=== PATIENT | male | born 1950 | race American Indian/Alaskan Native ===

== ENCOUNTER 2017-07-10 13:57 | Outpatient (CLI) | payer MEDICARE ==
--- NOTE | 2017-07-10 15:17 | XRay Report ---
LUMBOSACRAL SPINE, 6 VIEWS History: Back pain, osteoarthritis. Sacroiliitis. Findings: No comparison. There has been previous posterior fusion at L4-5 level. There is straightening of the normal lordosis. Moderate to severe multilevel degenerative disc disease and facet arthropathy are identified. No compression deformity, subluxation or bone lesion. The oblique images are limited. The flexion and extension views demonstrate no evidence for instability. There are mild symmetric osteoarthritic changes at the SI joints. Impression: Posterior fusion at L4-5. Multilevel degenerative change. No evidence for instability.
--- NOTE | 2017-07-11 10:04 | Magnetic Resonance Report ---
MRI scan of lumbar spine: History: Osteoarthritis, pain. Technique: Multiplanar, multisequence images were obtained without contrast injection. Findings: The conus medullaris terminates at L1 with normal signal intensity. Patient status post posterior fusion L4-5. No definite paravertebral mass. No evidence of acute fracture. Normal height of L1, L2 and L3. Decrease in height of L1-L2 and L2-L3 interspaces with degenerative changes. L3-L4 and L4-L5 interspaces are obscured by artifacts from the metallic hardware. L5-S1 is only partially visualized centrally. Lateral neural foramina not visualized. L1-L2. No neural foramina narrowing or central canal spinal stenosis. Degenerative facet joints. L2-L3. Bilateral neural foramina narrowing and mild central canal spinal stenosis secondary to degenerative diffuse disc bulge and degenerative facet joints and ligamenta flava hypertrophy. L5-S1. The central portion is visualized and appears unremarkable. The neural foramina is obscured by metallic artifacts. Impression: Limited study as detailed above. Stable fusion.
== END 2017-07-10 13:58 | disposition home or self-care (01) ==
LOC: SPVIMAG 13:57 → MRI 13:57
PROVIDERS: ATTEND Pain Medicine Interventional Pain Medicine
DX: M48.06 Spinal stenosis, lumbar region (principal); M51.17 Intervertebral disc disorders with radiculopathy, lumbosacral region; M12.88 Other specific arthropathies, not elsewhere classified, other specified site; M47.27 Other spondylosis with radiculopathy, lumbosacral region; I10 Essential (primary) hypertension; Z87.891 Personal history of nicotine dependence
CPT/HCPCS: 72114; 72148

== ENCOUNTER 2017-10-29 06:57 | Day surgery (SDC) | payer MEDICARE ==
[2017-10-29 07:54] LABS: Basophils # (Auto) 0.1 K/mm3 (0.0-0.1); Basophils % (Auto) 1.1 % (0.0-1.8); Eosinophils # (Auto) 0.1 K/mm3 (0.0-0.4); Eosinophils % (Auto) 0.9 % (0.0-4.3); Hematocrit 47.2 % (35.5-45.6); Hemoglobin 15.5 gm/dl (11.8-15.2); Lymphocytes # (Auto) 1.8 K/mm3 (1.2-5.4); Lymphocytes % (Auto) 26.6 % (13.4-35.0); Mean Corpuscular HGB Conc 33 % (32-34); Mean Corpuscular Volume 72 fl (84-94); Monocytes # (Auto) 0.9 K/mm3 (0.0-0.8); Monocytes % (Auto) 13.4 % (0.0-7.3); Platelet Count 149 K/mm3 (140-440); Red Blood Count 6.56 M/mm3 (3.65-5.03); Red Cell Distribution Width 18.3 % (13.2-15.2)
[2017-10-29] MEDS ORDERED: NACL 0.9% 500 ML 500 ML IV SCH (08:00)
[2017-10-29 08:03] LABS: INR 0.89 (0.87-1.13)
[2017-10-29 08:14] LABS: Mean Corpuscular Hemoglobin 24 pg (28-32)
[2017-10-29 08:21] LABS: BUN/Creatinine Ratio 17; Blood Urea Nitrogen 12 mg/dL (9-20); Calcium 9.3 mg/dL (8.4-10.2); Hemolysis Index 8
[2017-10-29] MEDS ORDERED: ECOTRIN PO ONE (09:00)
[2017-10-29] MEDS ORDERED: HEPARIN 10,000 UNITS/10 ML ONE (11:04)
[2017-10-29] MEDS ORDERED: HEPARIN/NS 5000 UNIT/500ML(CATH LAB) 1,000 ML IR ONE (11:04)
[2017-10-29] MEDS ORDERED: CALAN ONE (11:05)
[2017-10-29] MEDS ORDERED: NITROGLYCERIN SYRINGE 3 ML ONE (11:05)
[2017-10-29] MEDS ORDERED: XYLOCAINE 2% INFILTRATI ONE (11:05)
[2017-10-29] MEDS ORDERED: SUBLIMAZE ONE (11:06)
[2017-10-29] MEDS ORDERED: VERSED ONE (11:06)
--- NOTE | 2017-10-29 12:22 | Short Stay Summary ---
Short Stay Documentation Date of service: 10/29/17 - History H&P: obtained from office - Allergies and Medications Current Medications: Allergies No Known Allergies Allergy (Verified 10/29/17 07:22) Home Medications Medication Instructions Recorded Confirmed Last Taken Type amLODIPine [Norvasc] 10 mg PO QDAY #30 tablet 02/23/16 10/29/17 10/28/17 Rx 10mg Carvedilol [Coreg] 25 mg PO BID 10/29/17 10/29/17 10/28/17 History 25mg Gabapentin [Neurontin] 300 mg PO TID 10/29/17 10/29/17 10/28/17 History 300mg Percocet 7.5/325 mg 1 tab PO TID 10/29/17 10/29/17 10/28/17 History 1 Active Medications Sodium Chloride (Nacl 0.9% 500 Ml) 500 mls @ 50 mls/hr IV DIRECT JASON Stop: 10/29/17 17:59 Last Admin: 10/29/17 08:23 Dose: 50 mls/hr - Physical exam General appearance: no acute distress Integumentary: no rash HEENT: Atraumatic Lungs: Clear to auscultation Breasts: deferred Heart: Regular rate Gastrointestinal: normal Male Genitourinary: deferred Female Genitourinary: deferred Rectal Exam: deferred Extremities: no ischemia Neurological: Normal gait - Brief post op/procedure progress note Date of procedure: 10/29/17 Pre-op diagnosis: Shortness of breath Post-op diagnosis: same Procedure: LHC, LV gram and aortogram Anesthesia: MAC Findings: See report Surgeon: JIM MARES Estimated blood loss: none Pathology: none Condition: stable - Hospital course Hospital course: Uneventful - Disposition Condition at discharge: Good Disposition: DC-01 TO HOME OR SELFCARE Short Stay Discharge Plan Activity: advance as tolerated Weight Bearing Status: Weight Bear as Tolerated Diet: low fat, low cholesterol, low salt Follow up with: HALIE ANDERSEN MD [Primary Care Provider] - 7 Days
--- NOTE | 2017-10-29 13:23 | Cardiac Catherization Report ---
LEFT HEART CATHETERIZATION INDICATION FOR PROCEDURE: Shortness of breath. ORDERING PHYSICIAN: Zayda Lewis MD PROCEDURES PERFORMED: 1. Selective left and right coronary angiography. 2. Left ventriculography. 3. Ascending aortography. DESCRIPTION OF PROCEDURE: After obtaining the consent, the patient was draped using sterile technique. A 2% lidocaine was injected into the right wrist. A 5-Indian vascular sheath was inserted into the right radial artery. A 5-Indian JL3.5 catheter was used to selectively engage left coronary artery. A 5-Indian JR4 catheter was used to selectively engage the right coronary artery. A 5-Indian JR4 catheter was used to hand inject the left ventriculogram. A 5-Indian pigtail catheter was used to perform an ascending aortogram. No complications occurred during the procedure. Hemostasis was achieved at the end of the procedure using manual pressure. SPECIMEN REMOVED: None. ESTIMATED BLOOD LOSS: Minimal. SEDATION: Sedation administered was 1 mg of IV Versed and 50 mcg of IV fentanyl. FINDINGS: HEMODYNAMICS: Aortic pressure is 124/98. LV systolic pressure is mmHg and LV end diastolic pressure 8 mmHg. There was no significant gradient across the left ventricular outflow tract. CARDIAC STRUCTURES: 1. The left ventricle is normal in size with a hyperdynamic systolic function. The left ventricular ejection fraction is estimated at 70%. 2. The ascending aorta measures 49 mm at the sinus of Valsalva, 39 mm at the sinotubular junction, and 45 mm at the ascending aortic root. CORONARY ANATOMY: 1. This is a right dominant circulation. 2. The left main is angiographically normal. 3. The LAD is angiographically normal. 4. The left circumflex artery is angiographically normal. 5. The right coronary artery is angiographically normal. IMPRESSION: 1. Angiographically normal coronary circulation. 2. Hyperdynamic left ventricular function with an ejection fraction estimated at 70%. 3. Dilated ascending aorta with an aortic root measuring 49 mm at the sinus of Valsalva, 39 mm at the sinotubular junction, and 45 mm at the ascending aorta. RECOMMENDATIONS: Follow up with referring police liaison. JOB# [id number] MALUIK/SOWMYA
[2017-10-29 13:38] VITALS: BP 119/92
== END 2017-10-29 14:30 | disposition home or self-care (01) ==
LOC: CATHLABREC 06:57
PROVIDERS: ATTEND Internal Medicine
DX: R06.02 Shortness of breath (principal); E78.5 Hyperlipidemia, unspecified; I10 Essential (primary) hypertension; Z79.899 Other long term (current) drug therapy; Z82.49 Family history of ischemic heart disease and other diseases of the circulatory system
CPT/HCPCS: 36415; 80048; 85025; 85610; 85730; 93005; 93010; 93458; 93567; 99156; 99157; C1894; J1644; J2250; J3010; J7040; Q9967

== ENCOUNTER 2017-12-03 10:25 | Outpatient (CLI) | payer MEDICARE ==
[2017-12-03 11:04] LABS: Blood Urea Nitrogen 11 mg/dL (9-20)
[2017-12-03] MEDS ORDERED: NACL ONE (11:16)
--- NOTE | 2017-12-03 14:10 | Cat Scan Report ---
CTA CHEST: HISTORY: Dyspnea. COMPARISON: none. TECHNIQUE: Helical CT in 1.25mm intervals following IV contrast. Pulmonary embolus protocol. Sagittal and coronal reformatted images. Rotational MIP images. FINDINGS: Contrast bolus is satisfactory. No pulmonary embolus is identified. Thyroid gland: Normal. Tracheobronchial tree: Normal. Esophagus: Normal. Heart: Normal. Pericardium: Normal. Mediastinum: The thoracic aorta is mildly ectatic. No significant atherosclerotic disease, aneurysm or dissection. Lung Nick: Within normal limits. Pleural Spaces: Normal. Musculoskeletal: Mild thoracic spondylosis is noted. No fracture or suspicious bony lesion. IMPRESSION: No evidence for pulmonary embolus. No acute cardiopulmonary process is identified. Mild ectasia of the thoracic aorta. Thoracic spondylosis.
== END 2017-12-03 10:26 | disposition home or self-care (01) ==
LOC: CT 10:25
PROVIDERS: ATTEND Internal Medicine Cardiovascular Disease
DX: I77.810 Thoracic aortic ectasia (principal); M47.894 Other spondylosis, thoracic region
CPT/HCPCS: 36415; 71275; 82565; 84520; Q9967

== ENCOUNTER 2019-08-06 13:18 | Emergency (ER) | payer MEDICARE ==
--- NOTE | 2019-08-06 14:03 | Emergency Department Report ---
ED Dizziness HPI - General Chief Complaint: Dizziness Stated Complaint: BACK PAIN Time Seen by Provider: 08/06/19 14:03 Source: patient, EMS Mode of arrival: Stretcher Limitations: Physical Limitation - History of Present Illness Initial Comments: 58-year-old -[place] male patient with history of hypertension, CHF, diabetes, HIV, and chronic low back pain presents to the ED with complaints of dizziness and acute on chronic back pain after falling last night and today. He states he did hit his head yesterday, however denies any loss of consciousness, current headache, vision changes, numbness/tingling. He states his dizziness has resolved. He also denies any chest pain, shortness of breath, or dysuria. Patient states he is unsure of why he fell and denies any symptoms preceding the falls. He states "My legs just gave out". Patient also denies any saddle paresthesias, bladder/bowel loss of control, or numbness/tingling in legs. MD Complaint: dizziness -: Sudden Timing: now resolved Description: lightheadedness History of Same: No Severity: moderate Associated Symptoms: denies: chest pain, confusion, diaphoresis, fever/chills, seizure, shortness of breath, syncope - Related Data Home Medications Medication Instructions Recorded Confirmed Last Taken Gabapentin [Neurontin] 300 mg PO TID 10/29/17 06/15/18 10/28/17 300 mg Carvedilol [Coreg] 12.5 mg PO BID 06/15/18 06/15/18 Unknown Lisinopril [Zestril] 40 mg PO QDAY 06/15/18 06/15/18 Unknown Previous Rx's Medication Instructions Recorded Last Taken Type Folic Acid [Folvite] 1 mg PO DAILY #30 tablet 06/18/18 Unknown Rx Thiamine [Vitamin B-1] 100 mg PO QDAY #30 tablet 06/18/18 Unknown Rx hydrALAZINE [Apresoline TAB] 50 mg PO Q8HR #90 tablet 06/18/18 Unknown Rx Allergies Allergy/AdvReac Type Severity Reaction Status Date / Time No Known Allergies Allergy Verified 10/29/17 07:22 ED Review of Systems ROS: Stated complaint: BACK PAIN Other details as noted in HPI Comment: All other systems reviewed and negative Constitutional: denies: chills, fever Respiratory: no symptoms reported. denies: cough, shortness of breath, SOB with exertion, SOB at rest, wheezing Cardiovascular: denies: chest pain, palpitations, dyspnea on exertion, syncope Gastrointestinal: denies: abdominal pain, nausea, vomiting, diarrhea, constipation, hematochezia Musculoskeletal: back pain. denies: joint swelling Skin: denies: rash, lesions Neurological: denies: headache, weakness, numbness, paresthesias, confusion Hematological/Lymphatic: denies: easy bleeding ED Past Medical Hx - Past Medical History Hx Hypertension: Yes Hx Congestive Heart Failure: No Hx Diabetes: Yes Hx Asthma: No Hx COPD: No Hx HIV: No Additional medical history: Chronic lower back pain, Nerve pain in right hand - Surgical History Additional Surgical History: Back surgery x 2 - Social History Smoking Status: Former Smoker Substance Use Type: None - Medications Home Medications: Home Medications Medication Instructions Recorded Confirmed Last Taken Type Gabapentin [Neurontin] 300 mg PO TID 10/29/17 06/15/18 10/28/17 History 300 mg Carvedilol [Coreg] 12.5 mg PO BID 06/15/18 06/15/18 Unknown History Lisinopril [Zestril] 40 mg PO QDAY 06/15/18 06/15/18 Unknown History Folic Acid [Folvite] 1 mg PO DAILY #30 tablet 06/18/18 Unknown Rx Thiamine [Vitamin B-1] 100 mg PO QDAY #30 tablet 06/18/18 Unknown Rx hydrALAZINE [Apresoline TAB] 50 mg PO Q8HR #90 tablet 06/18/18 Unknown Rx ED Physical Exam - General Limitations: Physical Limitation ED Course Vital Signs 08/06/19 08/06/19 13:51 16:52 Temperature 97.9 F Pulse Rate 64 Respiratory 18 18 Rate Blood Pressure 92/70 O2 Sat by Pulse 96 98 Oximetry ED Medical Decision Making - Lab Data Result diagrams: 08/06/19 14:55 08/06/19 14:30 Lab Results 08/06/19 08/06/19 08/06/19 Range/Units 14:30 14:55 16:59 WBC 11.0 (4.5-11.0) K/mm3 RBC 5.95 H (3.65-5.03) M/mm3 Hgb 13.9 (11.8-15.2) gm/dl Hct 43.7 (35.5-45.6) % MCV 73 L (84-94) fl MCH 23 L (28-32) pg MCHC 32 (32-34) % RDW 18.8 H (13.2-15.2) % Plt Count 136 L (140-440) K/mm3 Sodium 135 L (137-145) mmol/L Potassium 4.5 (3.6-5.0) mmol/L Chloride 100.6 (98-107) mmol/L Carbon Dioxide 20 L (22-30) mmol/L Anion Gap 19 mmol/L BUN 8 L (9-20) mg/dL Creatinine 0.8 (0.8-1.5) mg/dL Estimated GFR > 60 ml/min BUN/Creatinine Ratio 10 % Glucose 159 H (75-100) mg/dL Calcium 8.8 (8.4-10.2) mg/dL Total Bilirubin 0.50 (0.1-1.2) mg/dL AST 14 (5-40) units/L ALT < 5 L (7-56) units/L Alkaline Phosphatase 82 (35-129) units/L Troponin T < 0.010 (0.00-0.029) ng/mL Total Protein 7.2 (6.3-8.2) g/dL Albumin 4.0 (3.9-5) g/dL Albumin/Globulin Ratio 1.3 % Urine Bilirubin Neg (Negative) Urine RBC (Auto) 1.0 (0.0-6.0) /HPF - Radiology Data Radiology results: report reviewed CT HEAD WITHOUT CONTRAST INDICATION : dizziness after fall. Head injury TECHNIQUE: Axial imaging performed from the skull apex through the skull base without the use of contrast. Sagittal and coronal reformatted images. All CT scans at this location are performed using CT dose reduction for ALARA by means of automated exposure control. COMPARISON: None FINDINGS: Parenchyma: No acute intracranial hemorrhage or parenchymal abnormality. Mild cortical volume loss and mild chronic white matter changes appear age appropriate. No evidence for hemorrhage, mass, extra-axial fluid collection or chronic infarct. Ventricles: Ventricles are normal in size and appear symmetric. Bones: No acute osseous abnormality. Sinuses: Sinuses and mastoid air cells are clear. Soft tissues: Soft tissues including the orbits appear normal. IMPRESSION: No acute abnormality. Age appropriate volume loss and chronic white matter changes. CT CERVICAL SPINE INDICATION: pain after fall, unable to walk. TECHNIQUE: Axial CT images of the cervical spine were obtained. Sagittal and coronal reformatted images were produced. All CT scans at this location are performed using CT dose reduction for ALARA by means of automated exposure control. COMPARISON: None available. FINDINGS: ALIGNMENT: This mild curvature the upper MR spine, convex toward the right. There is minimal retrolisthesis at L2-3 and L3-L4 with associated degenerative the disc changes at. VERTEBRAE: There is diffuse osteopenia. However, there is no definitive CT evidence of acute compression or fracture involving the lumbar spine. INTRAVERTEBRAL DISCS: There is decompression and fusion at L4-5 with posterior instrumentation. There is a slight disc bulge and mild facet joint hypertrophy at L5-S1 with mild neural foraminal narrowing. There are advanced degenerative disc changes on the right at L3-4 with endplate cystic findings at. The spondylosis and facet joint hypertrophy appear to result in moderate to degree of spinal stenosis. Furthermore, the neural foraminal narrowing appears to mildly encroach on the exiting right L3 nerve root sheath. There appears be moderate to degree of spinal stenosis at L2-3 with effacement of the right lateral recess at. Additionally, the right foraminal spondylosis and facet joint hypertrophy encroach on the exiting right L2 nerve root sheath. PARASPINAL SOFT TISSUES: No significant abnormality. ADDITIONAL FINDINGS: None. IMPRESSION: 1. There are postsurgical and multilevel advanced degenerative changes in volving lumbar spine as detailed above. 2. There is no definitive CT evidence of acute compression fracture CT THORACIC SPINE WITHOUT CONTRAST INDICATION: Back pain. TECHNIQUE: Axial imaging performed through the without the use of contrast. Sagittal and coronal reconstructed images were also reviewed. All CT scans at this location are performed using CT dose reduction for ALARA by means of automated exposure control. COMPARISON: None FINDINGS: Alignment: Spinal alignment is normal. Bones: Osteopenia. There is moderate multilevel degenerative disc disease throughout the thoracic spine. No evidence for fracture, bony destruction or bone lesion. The posterior ribs are intact. Soft tissues: No acute or significant incidental soft tissue abnormality. IMPRESSION: Osteopenia. Multilevel thoracic spondylosis. No acute injury is identified. - Medical Decision Making Patient here today with complaints of fall resulting in dizziness and back pain. He denies any dizziness today and also denies chest pain, shortness of breath, headache, or neck pain. He shouldn't back pain was a 10 out of 10 and patient states he was unable to walk due to the pain. At any rate flag symptoms. CT lumbar and thoracic are without acute findings. Patient's pain level now at a 2 out of 10. Vitals remain within normal limits. 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 Return precautions were discussed in detail with the patient in his starter who both state understanding. Critical care attestation.: If time is entered above; I have spent that time in minutes in the direct care of this critically ill patient, excluding procedure time. ED Disposition Clinical Impression: Dizziness, Acute exacerbation of chronic low back pain Fall Qualifiers: Encounter type: initial encounter Qualified Code(s): W19.XXXA - Unspecified fall, initial encounter Disposition: DC- TO HOME OR SELFCARE Is pt being admited?: No Condition: Stable Referrals: PRIMARY CARE, [Primary Care Provider] - 3-5 Days
[2019-08-06] MEDS ORDERED: ROXICODONE PO ONE (14:20)
[2019-08-06] MEDS ORDERED: PERCOCET 5/325 PO ONE (14:21)
[2019-08-06 15:03] LABS: BUN/Creatinine Ratio 10; Blood Urea Nitrogen 8 mg/dL (9-20); Calcium 8.8 mg/dL (8.4-10.2); Hemolysis Index 4
--- NOTE | 2019-08-06 15:04 | Cat Scan Report ---
CT HEAD WITHOUT CONTRAST INDICATION : dizziness after fall. Head injury TECHNIQUE: Axial imaging performed from the skull apex through the skull base without the use of con trast. Sagittal and coronal reformatted images. All CT scans at this location are performed using C T dose reduction for ALARA by means of automated exposure control. COMPARISON: None FINDINGS: Parenchyma: No acute intracranial hemorrhage or parenchymal abnormality. Mild cortical volume loss a nd mild chronic white matter changes appear age appropriate. No evidence for hemorrhage, mass, extra- axial fluid collection or chronic infarct. Ventricles: Ventricles are normal in size and appear symmetric. Bones: No acute osseous abnormality. Sinuses: Sinuses and mastoid air cells are clear. Soft tissues: Soft tissues including the orbits appear normal. IMPRESSION: No acute abnormality. Age appropriate volume loss and chronic white matter changes. Signer Name: Joaquín Khan Jr, MD Signed: 08/06/2019 3:00 PM Workstation Name: [id number]
[2019-08-06 15:15] LABS: Alanine Aminotransferase < 5 units/L (7-56)
[2019-08-06] MEDS ORDERED: TORADOL IM ONE (15:25)
[2019-08-06 15:35] LABS: Hematocrit 43.7 % (35.5-45.6); Hemoglobin 13.9 gm/dl (11.8-15.2); Mean Corpuscular HGB Conc 32 % (32-34); Mean Corpuscular Volume 73 fl (84-94); Platelet Count 136 K/mm3 (140-440); Red Blood Count 5.95 M/mm3 (3.65-5.03); Red Cell Distribution Width 18.8 % (13.2-15.2)
--- NOTE | 2019-08-06 16:21 | Cat Scan Report ---
CT THORACIC SPINE WITHOUT CONTRAST INDICATION: Back pain. TECHNIQUE: Axial imaging performed through the without the use of contrast. Sagittal and coronal re constructed images were also reviewed. All CT scans at this location are performed using CT dose red uction for ALARA by means of automated exposure control. COMPARISON: None FINDINGS: Alignment: Spinal alignment is normal. Bones: Osteopenia. There is moderate multilevel degenerative disc disease throughout the thoracic s pine. No evidence for fracture, bony destruction or bone lesion. The posterior ribs are intact. Soft tissues: No acute or significant incidental soft tissue abnormality. IMPRESSION: Osteopenia. Multilevel thoracic spondylosis. No acute injury is identified. Signer Name: Joaquín Khan Jr, MD Signed: 08/06/2019 4:16 PM Workstation Name: [id number]
[2019-08-06] MEDS ORDERED: ROBAXIN PO ONE (16:25)
--- NOTE | 2019-08-06 16:45 | Cat Scan Report ---
CT CERVICAL SPINE INDICATION: pain after fall, unable to walk. TECHNIQUE: Axial CT images of the cervical spine were obtained. Sagittal and coronal reformatted images were pr oduced. All CT scans at this location are performed using CT dose reduction for ALARA by means of aut omated exposure control. COMPARISON: None available. FINDINGS: ALIGNMENT: This mild curvature the upper MR spine, convex toward the right. There is minimal retrolis thesis at L2-3 and L3-L4 with associated degenerative the disc changes at. VERTEBRAE: There is diffuse osteopenia. However, there is no definitive CT evidence of acute compress ion or fracture involving the lumbar spine. INTRAVERTEBRAL DISCS: There is decompression and fusion at L4-5 with posterior instrumentation. There is a slight disc bulge and mild facet joint hypertrophy at L5-S1 with mild neural foraminal narrowin g. There are advanced degenerative disc changes on the right at L3-4 with endplate cystic findings at. T he spondylosis and facet joint hypertrophy appear to result in moderate to degree of spinal stenosis. Furthermore, the neural foraminal narrowing appears to mildly encroach on the exiting right L3 nerve root sheath. There appears be moderate to degree of spinal stenosis at L2-3 with effacement of the right lateral r ecess at. Additionally, the right foraminal spondylosis and facet joint hypertrophy encroach on the e xiting right L2 nerve root sheath. PARASPINAL SOFT TISSUES: No significant abnormality. ADDITIONAL FINDINGS: None. IMPRESSION: 1. There are postsurgical and multilevel advanced degenerative changes involving lumbar spine as deta iled above. 2. There is no definitive CT evidence of acute compression fracture Signer Name: Malcolm Coronado MD Signed: 08/06/2019 4:41 PM Workstation Name: [id number]
[2019-08-06 17:24] LABS: Bacteria,Urine 1+ /HPF (Negative); Bilirubin,Urine NEG (Negative); Blood,Urine NEG (Negative); Color,Urine Yellow (Yellow); Protein,Urine <15 mg/dL mg/dL (Negative); Urobilinogen,Urine < 2.0 mg/dL (<2.0)
[2019-08-06 17:49] LABS: Basophils % (Manual) 0 % (0.0-1.8); Eosinophils % (Manual) 0 % (0.0-4.3); Total Cells Counted 100
[2019-08-06 17:50] LABS: Anisocytosis 1+; Ovalocytes 1+; Poikilocytosis 1+
[2019-08-06 17:51] LABS: Platelet Estimate Consistent w Auto; Tear Drop Cells Few
[2019-08-06 18:51] VITALS: BP 115/82
== END 2019-08-06 18:49 | disposition home or self-care (01) ==
LOC: ED 13:18
DX: R42 Dizziness and giddiness (principal); I10 Essential (primary) hypertension; M54.5 Low back pain; E11.9 Type 2 diabetes mellitus without complications; Z87.891 Personal history of nicotine dependence; W22.8XXA Striking against or struck by other objects, initial encounter; Y93.89 Activity, other specified; Y92.89 Other specified places as the place of occurrence of the external cause; Y99.8 Other external cause status
CPT/HCPCS: 36415; 70450; 72128; 72131; 80053; 81001; 84484; 85007; 85025; 93005; 93010; 96372; 99284; J1885

== ENCOUNTER 2019-12-13 09:07 | Outpatient (CLI) | payer MEDICARE ==
[2019-12-13 10:08] LABS: Blood Urea Nitrogen 8 mg/dL (9-20)
--- NOTE | 2019-12-13 11:23 | Cat Scan Report ---
CTA CHEST WITH CONTRAST INDICATION : DYSPNEA. TECHNIQUE: Axial imaging performed through the chest, with contrast bolus timing set to maximize opa cification of the pulmonary arteries. Sagittal and coronal reformatted images. 3-plane MIP reformatte d images were obtained. All CT scans at this location are performed using CT dose reduction for ALAR A by means of automated exposure control. 100 mL of intravenous contrast administered. COMPARISON: None FINDINGS: Bolus: Contrast bolus timing is adequate. PTE: No filling defect is present to suggest PTE. Mediastinum: Borderline to mild cardiomegaly is evident. No pericardial effusion. The aorta is widel y patent. The ascending aorta measures 3.6 cm in diameter. No pathologic mediastinal adenopathy. Lungs: Minimal subpleural fibrotic changes are identified in the lower lung zones. No evidence for i nfiltrate, mass, pleural fluid or pneumothorax. Bones: Nondisplaced fracture lines are identified throughout the T8 vertebral body which is new sinc e the CT thoracic spine dated 08/06/2019. This fracture appears subacute. No additional thoracic frac tures are detected. Upper abdomen: Limited imaging of the upper abdomen shows nothing acute. IMPRESSION: No evidence for pulmonary embolus. Borderline heart size. T8 vertebral body fracture without significant loss of height. The chronicity of this is unclear. I s uspect this is a subacute fracture. Please correlate with the patient's clinical presentation and his tory. Signer Name: Joaquín Khan Jr, MD Signed: 12/13/2019 11:19 AM Workstation Name: [id number]
== END 2019-12-13 09:08 | disposition home or self-care (01) ==
LOC: CT 09:07
PROVIDERS: ATTEND Internal Medicine Cardiovascular Disease
DX: S22.9XXA Fracture of bony thorax, part unspecified, initial encounter for closed fracture (principal); R06.02 Shortness of breath; X58.XXXA Exposure to other specified factors, initial encounter; Y93.89 Activity, other specified; Y92.89 Other specified places as the place of occurrence of the external cause; Y99.8 Other external cause status
CPT/HCPCS: 36415; 71275; 82565; 84520; Q9967